=== PATIENT | female | born 1990 ===

== ENCOUNTER → 2017-10-04 | Outpatient (CLI) | payer OTHER ==
[~2017-10-04] MED LIST: IBUP800 PO; ONDA4ODT MM; OXYACE5T PO; Verotin-Gr Cap1 EACH
== END | disposition home or self-care (01) ==
LOC: LAB EV 15:58
DX: A38.9 Scarlet fever, uncomplicated (principal)
CPT/HCPCS: 87070

== ENCOUNTER → 2018-10-19 | Outpatient (CLI) | payer BC ==
[2018-10-23 19:06] LABS: HPV 16 Negative (Negative); HPV 18 Negative (Negative); HPV OTHER HR TYPES Negative (Negative)
== END | disposition home or self-care (01) ==
LOC: LAB 09:32 → LAB SHORT 09:32
PROVIDERS: Advanced Practice Midwife
DX: Z01.419 Encounter for gynecological examination (general) (routine) without abnormal findings (principal)
CPT/HCPCS: 87624; G0123

== ENCOUNTER → 2021-02-18 | Outpatient (CLI) | payer BC ==
[2021-02-20 15:10] LABS: HPV 16 Negative (Negative); HPV 18 Negative (Negative); HPV OTHER HR TYPES Negative (Negative)
== END | disposition home or self-care (01) ==
LOC: LAB SHORT 16:49 → LAB 16:49
PROVIDERS: Obstetrics & Gynecology
DX: Z01.419 Encounter for gynecological examination (general) (routine) without abnormal findings (principal)
CPT/HCPCS: 87624; G0123

== ENCOUNTER → 2022-06-15 | Outpatient (CLI) | payer BC | END | disposition home or self-care (01) | DX: N76.0 Acute vaginitis (principal); R35.0 Frequency of micturition ==

== ENCOUNTER → 2024-04-06 | Outpatient (CLI) | payer OTHER ==
[2024-04-06 23:16] LABS: Candida Group, PCR NOT DETECTED (NOT DETECT); Candida glabrata-krusei, PCR NOT DETECTED (NOT DETECT)
[2024-04-07 00:13] LABS: Bacterial Vaginosis PCR Positive (NEGATIVE)
== END ==
LOC: LAB 16:29 → LAB SHORT 16:29
PROVIDERS: Advanced Practice Midwife
DX: N76.0 Acute vaginitis (principal)
CPT/HCPCS: 87481; 87661; 87801

== ENCOUNTER → 2024-05-25 | Outpatient (CLI) | payer OTHER | LOC: LAB SHORT 13:11 → LAB 13:11 | DX: D06.9 Carcinoma in situ of cervix, unspecified (principal); R87.810 Cervical high risk human papillomavirus (HPV) DNA test positive | CPT/HCPCS: 88305 ==

== ENCOUNTER → 2024-06-01 | Outpatient (CLI) | payer OTHER ==
[2024-06-02 07:44] LABS: Candida Group, PCR NOT DETECTED (NOT DETECT); Candida glabrata-krusei, PCR NOT DETECTED (NOT DETECT)
[2024-06-02 07:54] LABS: Bacterial Vaginosis PCR Positive (NEGATIVE)
== END ==
LOC: LAB 15:48 → LAB SHORT 15:48
PROVIDERS: Obstetrics & Gynecology
DX: N89.8 Other specified noninflammatory disorders of vagina (principal)
CPT/HCPCS: 87481; 87661; 87801

== ENCOUNTER 2024-07-06 07:26 | Day surgery (SDC) | payer OTHER ==
[~2024-07-06] VITALS: Ht 157.5 cm; Wt 66.7 kg
[~2024-07-06 07:26] MED LIST changes: +Lactated Ringer's 1,000 ML IV ONE
--- NOTE | 2024-07-06 07:53 | NUR ---
PT HAD N/V AFTER ORAL PROCEDURE CHILD
[2024-07-06] MEDS ORDERED: LORAZEPAM0.5 MG PO (07:54)
[2024-07-06] MEDS ORDERED: MULVITA PO (07:55)
[2024-07-06] MEDS ORDERED: Lactated Ringer's 1,000 ML IV ONE (08:02)
[2024-07-06] MEDS ORDERED: Vasopressin 20 UNITS/ML 1ML Vial ONE (10:05)
[2024-07-06] MEDS ORDERED: Lidocaine HCl 2% 10 ML SDA ONE (10:05)
[2024-07-06] MEDS ORDERED: FentaNYL Citrate 50 MCG/ML 2 ML Injection ONE (10:08)
[2024-07-06] MEDS ORDERED: propofoL 20 ML IV ONE (10:08)
[2024-07-06] MEDS ORDERED: Dexamethasone Sod Phos 10 MG/ML 1ML VIAL ONE (10:09)
[2024-07-06] MEDS ORDERED: Ondansetron HCl 2 MG / ML 2ML Vial ONE (10:26)
[2024-07-06] MEDS ORDERED: Lidocaine HCl 1% 30 ML SDV XX ONE (10:28)
[2024-07-06] MEDS ORDERED: Acetaminophen 500 MG Tab ONE (11:29)
[2024-07-06] MEDS ORDERED: Ketorolac Tromethamine 30mg Vial ONE (11:29)
[2024-07-06] MEDS ORDERED: OxyCODONE HCL 5 MG TAB ONE (11:31)
[2024-07-06 11:50] VITALS: BP 117/79
--- NOTE | 2024-07-06 13:25 | NUR ---
07/06/24 [id number] [address]PIO REPORT RECEIVED FROM MORENO HARRIS. PT SEEN IN SDU ROOM AND DENIES EXCESSIVE PAIN OR NAUSEA. PT WAS MEDICATED BY MORENO HARRIS PRIOR TO THIS RN TAKING OVER. SPOUSE AT BEDSIDE. PT REPORTS PAIN IS TOLERABLE AND VOICES READY FOR DC INSTRUCTIONS. ENGAGED IN DC TEACHING WITH PATIENT AND FAMILY. ALL QUESTIONS ASKED AND ANSWERED. PROVIDED W/COPY OF DC INSTRUCTIONS. PT ESCORTED TO BATHROOM AND VOIDED PRIOR TO DISCHARGE. PT DC AMBULATORY TO WAITING CAR
== END 2024-07-06 12:20 | disposition home or self-care (01) ==
LOC: ORSCSDS 07:26
PROVIDERS: Obstetrics & Gynecology
PROC: 0UBC7ZX Excision of Cervix, Via Natural or Artificial Opening, Diagnostic (ICD-10-PCS; principal; 2024-07-06 09:00)
DX: D06.9 Carcinoma in situ of cervix, unspecified (principal); F41.9 Anxiety disorder, unspecified; Z79.899 Other long term (current) drug therapy
CPT/HCPCS: 88305; A9270; J1100; J1885; J2003; J2405; J2704; J3010; J7120